=== PATIENT | female | born 1955 | race Caucasian/White ===

== ENCOUNTER 2021-04-03 10:22 | Inpatient (IN) | payer OTHER ==
[2021-04-03] MEDS ORDERED: MAGNESIUM HYDROX 2400MG/30ML ORAL SUSPENSION 30 ML CUP PO PRN (10:41)
[2021-04-03] MEDS ORDERED: ACETAMINOPHEN 325 MG TABLET (FP) PO PRN ×2 (10:41)
[2021-04-03] MEDS ORDERED: MAGNESIUM CITRATE 300 ML BOTTLE PO PRN (10:41)
[2021-04-03] MEDS ORDERED: MENTHOL/PHENOL 1 EACH UD MM PRN (10:41)
[2021-04-03] MEDS ORDERED: ONDANSETRON *ODT* 4 MG TABLET SL PRN (10:41)
[2021-04-03] MEDS ORDERED: BISMUTH SUBSALICYLATE 524 MG/30 ML PO PRN (10:41)
[2021-04-03] MEDS ORDERED: MAG HYDROX/AL HYDROX/SIMETH 30 ML UNIT-DOSE CUP PO PRN (10:41)
[2021-04-03 11:01] VITALS: BMI 29.2
[2021-04-03] MEDS: hydrOXYzine PAMOATE 25 MG CAPSULE (FP) PO SCH ×3 (13:12→21:55)
[2021-04-03] MEDS: PRENATAL VITAMINS W/ FOLIC ACID TABLET (FP) PO SCH (13:12)
[2021-04-03 15:05] LABS: HEMATOCRIT 37.6 % (32.4-45.2); HEMOGLOBIN 12.2 GM/dL (10.7-15.3); MCH 29.9 pg (25.7-33.7); MCHC 32.6 g/dl (32.0-36.0); MEAN CELL VOLUME 91.9 fl (80-96); MEAN PLT VOLUME 8.5 fl (7.5-11.1); PLATELET COUNT 280 10^3/uL (134-434); RBC 4.09 M/mm3 (3.60-5.2); RDW 17.6 % (11.6-15.6); WHITE BLOOD COUNT 8.2 K/mm3 (4.0-10.0)
[2021-04-03 15:18] LABS: CALCIUM 10.7 mg/dL (8.5-10.1)
[2021-04-03 15:19] LABS: ALBUMIN 4.2 g/dl (3.4-5.0); BLOOD UREA NITROGEN 25.1 mg/dL (7-18)
[2021-04-03 15:22] LABS: CREATININE 0.9 mg/dL (0.55-1.3)
[2021-04-03 15:23] LABS: TOT PROT 8.4 g/dl (6.4-8.2)
[2021-04-03 15:24] LABS: BILIRUBIN,TOTAL 0.4 mg/dL (0.2-1)
[2021-04-03] MEDS: THIAMINE HCL 100 MG TABLET (FP) PO SCH (21:52)
[2021-04-03] MEDS: MELATONIN 5 MG TABLETS PO SCH (21:52)
[2021-04-03] MEDS: METHOCARBAMOL 500 MG TABLET PO PRN (21:52)
[2021-04-03] MEDS: MIRTAZAPINE 15 MG TABLET (FP) PO SCH (21:53)
[2021-04-03] MEDS: OXYBUTYNIN CHLORIDE 5 MG TABLET PO SCH (23:21)
[2021-04-04] MEDS: hydrOXYzine PAMOATE 25 MG CAPSULE (FP) PO SCH ×5 (05:52→22:45)
[2021-04-04] MEDS: METHOCARBAMOL 500 MG TABLET PO PRN ×2 (05:52→13:24)
[2021-04-04] MEDS: OXYBUTYNIN CHLORIDE 5 MG TABLET PO SCH ×2 (09:17→22:45)
[2021-04-04] MEDS: LOSARTAN POTASSIUM 50 MG TABLET PO SCH (09:17)
[2021-04-04] MEDS: amLODIPine BESYLATE 5 MG TABLET (FP) PO SCH (09:17)
[2021-04-04] MEDS: ATORVASTATIN CA 20 MG TABLET (FP) PO SCH (09:18)
[2021-04-04] MEDS: PRENATAL VITAMINS W/ FOLIC ACID TABLET (FP) PO SCH (11:32)
[2021-04-04] MEDS: MELATONIN 5 MG TABLETS PO SCH (22:45)
[2021-04-04] MEDS: THIAMINE HCL 100 MG TABLET (FP) PO SCH (22:45)
[2021-04-04] MEDS: MIRTAZAPINE 15 MG TABLET (FP) PO SCH (23:00)
[2021-04-05] MEDS: hydrOXYzine PAMOATE 25 MG CAPSULE (FP) PO SCH ×5 (06:27→22:21)
[2021-04-05] MEDS: LOSARTAN POTASSIUM 50 MG TABLET PO SCH (10:00)
[2021-04-05] MEDS: amLODIPine BESYLATE 5 MG TABLET (FP) PO SCH (10:00)
[2021-04-05] MEDS: OXYBUTYNIN CHLORIDE 5 MG TABLET PO SCH ×2 (10:00→22:21)
[2021-04-05] MEDS: PRENATAL VITAMINS W/ FOLIC ACID TABLET (FP) PO SCH (10:00)
[2021-04-05] MEDS: ATORVASTATIN CA 20 MG TABLET (FP) PO SCH (10:00)
[2021-04-05] MEDS: LACTULOSE 20 GM/30 ML UDC (FOR ORAL USE ONLY) PO PRN ×2 (13:39→18:06)
[2021-04-05] MEDS: THIAMINE HCL 100 MG TABLET (FP) PO SCH (22:21)
[2021-04-05] MEDS: MIRTAZAPINE 15 MG TABLET (FP) PO SCH (22:21)
[2021-04-05] MEDS: MELATONIN 5 MG TABLETS PO SCH (22:21)
[2021-04-05] MEDS: METHOCARBAMOL 500 MG TABLET PO PRN (22:22)
[2021-04-06] MEDS: hydrOXYzine PAMOATE 25 MG CAPSULE (FP) PO SCH ×5 (06:27→23:22)
[2021-04-06] MEDS: METHOCARBAMOL 500 MG TABLET PO PRN (06:27)
[2021-04-06] MEDS: PRENATAL VITAMINS W/ FOLIC ACID TABLET (FP) PO SCH (10:40)
[2021-04-06] MEDS: amLODIPine BESYLATE 5 MG TABLET (FP) PO SCH (10:40)
[2021-04-06] MEDS: ATORVASTATIN CA 20 MG TABLET (FP) PO SCH (10:41)
[2021-04-06] MEDS: LOSARTAN POTASSIUM 50 MG TABLET PO SCH (10:41)
[2021-04-06] MEDS: OXYBUTYNIN CHLORIDE 5 MG TABLET PO SCH ×2 (10:42→23:22)
[2021-04-06] MEDS: IBUPROFEN 400 MG TABLET (FP) PO PRN (10:44)
[2021-04-06] MEDS: LACTULOSE 20 GM/30 ML UDC (FOR ORAL USE ONLY) PO SCH ×3 (14:56→23:23)
[2021-04-06] MEDS: THIAMINE HCL 100 MG TABLET (FP) PO SCH (23:23)
[2021-04-06] MEDS: MIRTAZAPINE 15 MG TABLET (FP) PO SCH (23:23)
[2021-04-06] MEDS: MELATONIN 5 MG TABLETS PO SCH (23:29)
[2021-04-07] MEDS: METHOCARBAMOL 500 MG TABLET PO PRN (06:13)
[2021-04-07] MEDS: hydrOXYzine PAMOATE 25 MG CAPSULE (FP) PO SCH ×5 (06:13→23:35)
[2021-04-07] MEDS: LACTULOSE 20 GM/30 ML UDC (FOR ORAL USE ONLY) PO SCH ×3 (06:14→23:34)
[2021-04-07] MEDS: ATORVASTATIN CA 20 MG TABLET (FP) PO SCH (10:31)
[2021-04-07] MEDS: amLODIPine BESYLATE 5 MG TABLET (FP) PO SCH (10:31)
[2021-04-07] MEDS: OXYBUTYNIN CHLORIDE 5 MG TABLET PO SCH ×2 (10:31→23:34)
[2021-04-07] MEDS: LOSARTAN POTASSIUM 50 MG TABLET PO SCH (10:31)
[2021-04-07] MEDS: PRENATAL VITAMINS W/ FOLIC ACID TABLET (FP) PO SCH (10:31)
[2021-04-07] MEDS: MELATONIN 5 MG TABLETS PO SCH (23:34)
[2021-04-07] MEDS: MIRTAZAPINE 15 MG TABLET (FP) PO SCH (23:34)
[2021-04-07] MEDS: THIAMINE HCL 100 MG TABLET (FP) PO SCH (23:35)
[2021-04-08] MEDS: LACTULOSE 20 GM/30 ML UDC (FOR ORAL USE ONLY) PO SCH ×3 (06:16→21:22)
[2021-04-08] MEDS: hydrOXYzine PAMOATE 25 MG CAPSULE (FP) PO SCH ×5 (06:16→21:23)
[2021-04-08] MEDS: OXYBUTYNIN CHLORIDE 5 MG TABLET PO SCH ×2 (10:20→21:23)
[2021-04-08] MEDS: amLODIPine BESYLATE 5 MG TABLET (FP) PO SCH (10:20)
[2021-04-08] MEDS: LOSARTAN POTASSIUM 50 MG TABLET PO SCH (10:20)
[2021-04-08] MEDS: PRENATAL VITAMINS W/ FOLIC ACID TABLET (FP) PO SCH (10:20)
[2021-04-08] MEDS: ATORVASTATIN CA 20 MG TABLET (FP) PO SCH (10:20)
[2021-04-08 21:16] VITALS: TEMP 97.1
[2021-04-08] MEDS: MELATONIN 5 MG TABLETS PO SCH (21:23)
[2021-04-08] MEDS: THIAMINE HCL 100 MG TABLET (FP) PO SCH (21:23)
[2021-04-08] MEDS: MIRTAZAPINE 15 MG TABLET (FP) PO SCH (21:24)
[2021-04-08] MEDS: IBUPROFEN 400 MG TABLET (FP) PO PRN (22:38)
[2021-04-09 02:26] VITALS: BP 132/67; PULSE 53
== END 2021-04-09 08:40 | disposition short-term general hospital (02) | DRG 897 ==
LOC: YASAS 10:22 → Y3N 11:52
PROVIDERS: ADMIT Allergy & Immunology; ATTEND Allergy & Immunology
PROC: HZ2ZZZZ Detoxification Services for Substance Abuse Treatment (ICD-10-PCS; principal; 2021-04-03)
DX: F10.20 Alcohol dependence, uncomplicated (principal); E72.20 Disorder of urea cycle metabolism, unspecified; F10.24 Alcohol dependence with alcohol-induced mood disorder; F41.1 Generalized anxiety disorder; F03.90 Unspecified dementia, unspecified severity, without behavioral disturbance, psychotic disturbance, mood disturbance, and anxiety; G47.00 Insomnia, unspecified; I10 Essential (primary) hypertension; R41.82 Altered mental status, unspecified; R41.3 Other amnesia; R79.89 Other specified abnormal findings of blood chemistry
CPT/HCPCS: 36415; 80053; 82140; 85027; 86780; 93005; 93010; C9803; U0003; U0005

== ENCOUNTER 2021-04-09 02:37 | Observation (INO) | payer OTHER ==
[2021-04-09] MEDS ORDERED: LACTULOSE 20 GM/30 ML UDC (FOR ORAL USE ONLY) PO ONE (03:19)
[2021-04-09] MEDS ORDERED: LACTULOSE 20 GM/30 ML UDC (FOR ORAL USE ONLY) ONE (05:12)
[2021-04-09 05:21] LABS: BASO % 0.6 % (0-2.0); EOS % 1.6 % (0-4.5); HEMATOCRIT 33.4 % (32.4-45.2); HEMOGLOBIN 10.8 GM/dL (10.7-15.3); MCH 29.7 pg (25.7-33.7); MCHC 32.4 g/dl (32.0-36.0); MEAN CELL VOLUME 91.6 fl (80-96); MEAN PLT VOLUME 8.1 fl (7.5-11.1); MONO % 12.9 % (3.8-10.2); NEUT % 58.9 % (42.8-82.8); PLATELET COUNT 298 10^3/uL (134-434); RBC 3.65 M/mm3 (3.60-5.2)
[2021-04-09] MEDS: LACTATED RINGERS SOLUTION 1,000 ML/1,000 ML INFUS.BAG IV SCH (05:21)
[2021-04-09 05:43] LABS: CALCIUM 10.2 mg/dL (8.5-10.1); MAGNESIUM 2.2 mg/dL (1.8-2.4)
[2021-04-09 05:44] LABS: ALBUMIN 3.8 g/dl (3.4-5.0); BLOOD UREA NITROGEN 23.1 mg/dL (7-18)
[2021-04-09 05:47] LABS: CREATININE 0.8 mg/dL (0.55-1.3); PHOSPHOROUS 3.1 mg/dL (2.5-4.9)
[2021-04-09 05:49] LABS: BILIRUBIN,TOTAL 0.3 mg/dL (0.2-1); TOT PROT 7.3 g/dl (6.4-8.2)
[2021-04-09 06:13] LABS: INR 1.09 (0.83-1.09); PROTHROMBIN TIME (PATIENT) 12.5 SEC (9.7-13.0)
[2021-04-09 06:15] LABS: ACTIVATED PTT 28.8 SECONDS (25.2-36.5)
[2021-04-09] MEDS ORDERED: LOSARTAN POTASSIUM 50 MG TABLET ONE ×2 (09:19)
[2021-04-09] MEDS ORDERED: ENOXAPARIN NA (PORCINE) 40 MG/0.4 ML DISP.SYRIN SQ ONE (09:19)
[2021-04-09] MEDS: LOSARTAN POTASSIUM 50 MG TABLET PO SCH (09:43)
[2021-04-09] MEDS: ENOXAPARIN NA (PORCINE) 40 MG/0.4 ML DISP.SYRIN SQ SCH (09:43)
[2021-04-09 11:31] VITALS: BMI 27.0
[2021-04-09] MEDS: THIAMINE HCL 100 MG TABLET (FP) PO SCH (13:43)
[2021-04-09] MEDS: FOLIC ACID 1 MG TABLET (FP) PO SCH (13:43)
[2021-04-09] MEDS ORDERED: OLANZapine 10 MG TABLET PO ONE (14:46)
[2021-04-09] MEDS ORDERED: HALOPERIDOL LACTATE 5 MG/ML IM PRN (14:48)
[2021-04-09] MEDS: MIRTAZAPINE 15 MG TABLET (FP) PO SCH (22:44)
[2021-04-09] MEDS: LACTULOSE 20 GM/30 ML UDC (FOR ORAL USE ONLY) PO SCH (22:44)
[2021-04-10 04:15] LABS: COCAINE, UR NEGATIVE (NEGATIVE); METHADONE, UR NEGATIVE (NEGATIVE); PHENCYCLIDINE,URINE NEGATIVE (NEGATIVE); URINE BENZODIAZEPINES NEGATIVE (NEGATIVE)
[2021-04-10 04:16] LABS: OPIATES, URI NEGATIVE (NEGATIVE); URINE BARBITURATES NEGATIVE (NEGATIVE)
[2021-04-10 04:37] LABS: URINE AMPHETAMINES NEGATIVE (NEGATIVE)
[2021-04-10] MEDS: LACTATED RINGERS SOLUTION 1,000 ML/1,000 ML INFUS.BAG IV SCH ×2 (05:00→17:09)
[2021-04-10] MEDS: HYDROCHLOROTHIAZIDE 12.5 MG CAPSULE (FP) PO SCH (06:26)
[2021-04-10 08:57] LABS: BASO % 0.6 % (0-2.0); EOS % 1.2 % (0-4.5); HEMATOCRIT 36.4 % (32.4-45.2); HEMOGLOBIN 11.4 GM/dL (10.7-15.3); LYMPH % 21.1 % (8-40); MCH 29.4 pg (25.7-33.7); MCHC 31.4 g/dl (32.0-36.0); MEAN CELL VOLUME 93.6 fl (80-96); MEAN PLT VOLUME 8.4 fl (7.5-11.1); MONO % 12.8 % (3.8-10.2); NEUT % 64.3 % (42.8-82.8); PLATELET COUNT 322 10^3/uL (134-434); RBC 3.88 M/mm3 (3.60-5.2); RDW 16.3 % (11.6-15.6); WHITE BLOOD COUNT 6.2 K/mm3 (4.0-10.0)
[2021-04-10] MEDS: LOSARTAN POTASSIUM 50 MG TABLET PO SCH (09:00)
[2021-04-10] MEDS: ENOXAPARIN NA (PORCINE) 40 MG/0.4 ML DISP.SYRIN SQ SCH (09:00)
[2021-04-10] MEDS: LACTULOSE 20 GM/30 ML UDC (FOR ORAL USE ONLY) PO SCH ×3 (09:00→21:57)
[2021-04-10] MEDS: THIAMINE HCL 100 MG TABLET (FP) PO SCH (09:01)
[2021-04-10] MEDS: FOLIC ACID 1 MG TABLET (FP) PO SCH (09:01)
[2021-04-10 09:41] LABS: BILIRUBIN,TOTAL 0.6 mg/dL (0.2-1)
[2021-04-10 09:42] LABS: ALBUMIN 3.9 g/dl (3.4-5.0); CALCIUM 10.1 mg/dL (8.5-10.1)
[2021-04-10 09:43] LABS: MAGNESIUM 2.2 mg/dL (1.8-2.4); TOT PROT 7.6 g/dl (6.4-8.2)
[2021-04-10 09:45] LABS: BLOOD UREA NITROGEN 15.3 mg/dL (7-18); PHOSPHOROUS 2.4 mg/dL (2.5-4.9)
[2021-04-10 09:51] LABS: CREATININE 0.7 mg/dL (0.55-1.3)
[2021-04-10] MEDS: MIRTAZAPINE 15 MG TABLET (FP) PO SCH (21:56)
[2021-04-10] MEDS: MELATONIN 1 MG TABLET PO SCH (21:56)
[2021-04-11] MEDS: LACTATED RINGERS SOLUTION 1,000 ML/1,000 ML INFUS.BAG IV SCH ×2 (05:45→13:40)
[2021-04-11] MEDS: HYDROCHLOROTHIAZIDE 12.5 MG CAPSULE (FP) PO SCH (06:07)
[2021-04-11 07:59] LABS: BASO % 0.8 % (0-2.0); EOS % 1.2 % (0-4.5); HEMOGLOBIN 11.2 GM/dL (10.7-15.3); LYMPH % 23.2 % (8-40); MCH 30.1 pg (25.7-33.7); MCHC 30.2 g/dl (32.0-36.0); MEAN CELL VOLUME 99.4 fl (80-96); MEAN PLT VOLUME 8.8 fl (7.5-11.1); MONO % 13.1 % (3.8-10.2); NEUT % 61.7 % (42.8-82.8); PLATELET COUNT 261 10^3/uL (134-434); RBC 3.72 M/mm3 (3.60-5.2); WHITE BLOOD COUNT 5.6 K/mm3 (4.0-10.0)
[2021-04-11 08:26] LABS: CALCIUM 10.4 mg/dL (8.5-10.1)
[2021-04-11 08:27] LABS: ALBUMIN 3.8 g/dl (3.4-5.0); MAGNESIUM 2.1 mg/dL (1.8-2.4)
[2021-04-11 08:30] LABS: CREATININE 0.7 mg/dL (0.55-1.3)
[2021-04-11 08:31] LABS: BILIRUBIN,TOTAL 0.3 mg/dL (0.2-1); TOT PROT 7.5 g/dl (6.4-8.2)
[2021-04-11] MEDS: LACTULOSE 20 GM/30 ML UDC (FOR ORAL USE ONLY) PO SCH ×4 (09:36→21:01)
[2021-04-11] MEDS: ENOXAPARIN NA (PORCINE) 40 MG/0.4 ML DISP.SYRIN SQ SCH (09:36)
[2021-04-11] MEDS: LOSARTAN POTASSIUM 50 MG TABLET PO SCH (09:36)
[2021-04-11] MEDS: FOLIC ACID 1 MG TABLET (FP) PO SCH (09:36)
[2021-04-11] MEDS: THIAMINE HCL 100 MG TABLET (FP) PO SCH (09:37)
[2021-04-11] MEDS: ACETAMINOPHEN 325 MG TABLET (FP) PO PRN (16:03)
[2021-04-11] MEDS: MELATONIN 1 MG TABLET PO SCH (21:00)
[2021-04-11] MEDS: MIRTAZAPINE 15 MG TABLET (FP) PO SCH (21:01)
[2021-04-12] MEDS: HYDROCHLOROTHIAZIDE 12.5 MG CAPSULE (FP) PO SCH (06:23)
[2021-04-12] MEDS: LACTATED RINGERS SOLUTION 1,000 ML/1,000 ML INFUS.BAG IV SCH (06:58)
[2021-04-12 08:54] LABS: EOS % 2.5 % (0-4.5); HEMATOCRIT 35.4 % (32.4-45.2); HEMOGLOBIN 11.5 GM/dL (10.7-15.3); LYMPH % 34.3 % (8-40); MCH 30.7 pg (25.7-33.7); MCHC 32.6 g/dl (32.0-36.0); MEAN CELL VOLUME 94.4 fl (80-96); MEAN PLT VOLUME 8.4 fl (7.5-11.1); MONO % 14.8 % (3.8-10.2); NEUT % 47.4 % (42.8-82.8); PLATELET COUNT 304 10^3/uL (134-434); RBC 3.75 M/mm3 (3.60-5.2); RDW 16.4 % (11.6-15.6); WHITE BLOOD COUNT 5.8 K/mm3 (4.0-10.0)
[2021-04-12] MEDS: ENOXAPARIN NA (PORCINE) 40 MG/0.4 ML DISP.SYRIN SQ SCH (10:31)
[2021-04-12] MEDS: LACTULOSE 20 GM/30 ML UDC (FOR ORAL USE ONLY) PO SCH ×4 (10:31→22:01)
[2021-04-12] MEDS: LOSARTAN POTASSIUM 50 MG TABLET PO SCH (10:32)
[2021-04-12] MEDS: THIAMINE HCL 100 MG TABLET (FP) PO SCH (10:32)
[2021-04-12] MEDS: FOLIC ACID 1 MG TABLET (FP) PO SCH (10:32)
[2021-04-12] MEDS: ACETAMINOPHEN 325 MG TABLET (FP) PO PRN (10:36)
[2021-04-12 10:49] LABS: ALBUMIN 3.8 g/dl (3.4-5.0); BILIRUBIN,TOTAL 0.3 mg/dL (0.2-1); BLOOD UREA NITROGEN 13.6 mg/dL (7-18); CALCIUM 10.7 mg/dL (8.5-10.1); CREATININE 0.8 mg/dL (0.55-1.3); MAGNESIUM 2.3 mg/dL (1.8-2.4); TOT PROT 7.5 g/dl (6.4-8.2)
[2021-04-12] MEDS ORDERED: LACTATED RINGERS SOLUTION 1,000 ML/1,000 ML INFUS.BAG IV SCH (19:00)
[2021-04-12] MEDS ORDERED: SODIUM BICARBONATE 650 MG TABLET PO SCH (22:00)
[2021-04-12] MEDS: MELATONIN 1 MG TABLET PO SCH (22:01)
[2021-04-12] MEDS: MIRTAZAPINE 15 MG TABLET (FP) PO SCH (22:02)
[2021-04-13] MEDS: LORazepam 0.5 MG TABLET PO PRN ×2 (05:40→14:28)
[2021-04-13] MEDS: ACETAMINOPHEN 325 MG TABLET (FP) PO PRN (05:47)
[2021-04-13 09:01] LABS: BASO % 0.8 % (0-2.0); EOS % 1.2 % (0-4.5); HEMATOCRIT 38.7 % (32.4-45.2); HEMOGLOBIN 12.2 GM/dL (10.7-15.3); LYMPH % 23.4 % (8-40); MCH 29.7 pg (25.7-33.7); MCHC 31.5 g/dl (32.0-36.0); MEAN CELL VOLUME 94.2 fl (80-96); MONO % 10.6 % (3.8-10.2); PLATELET COUNT 321 10^3/uL (134-434); RDW 16.5 % (11.6-15.6); WHITE BLOOD COUNT 6.9 K/mm3 (4.0-10.0)
[2021-04-13 09:25] LABS: ALBUMIN 4.5 g/dl (3.4-5.0); BLOOD UREA NITROGEN 15.9 mg/dL (7-18); CALCIUM 10.8 mg/dL (8.5-10.1); MAGNESIUM 2.1 mg/dL (1.8-2.4)
[2021-04-13 09:27] LABS: CREATININE 0.8 mg/dL (0.55-1.3)
[2021-04-13 09:30] LABS: BILIRUBIN,TOTAL 0.3 mg/dL (0.2-1); TOT PROT 8.6 g/dl (6.4-8.2)
[2021-04-13] MEDS: LOSARTAN POTASSIUM 50 MG TABLET PO SCH (10:07)
[2021-04-13] MEDS: THIAMINE HCL 100 MG TABLET (FP) PO SCH (10:07)
[2021-04-13] MEDS: ENOXAPARIN NA (PORCINE) 40 MG/0.4 ML DISP.SYRIN SQ SCH (10:07)
[2021-04-13] MEDS: LACTULOSE 20 GM/30 ML UDC (FOR ORAL USE ONLY) PO SCH ×4 (10:07→22:03)
[2021-04-13] MEDS: FOLIC ACID 1 MG TABLET (FP) PO SCH (10:08)
[2021-04-13] MEDS: MIRTAZAPINE 15 MG TABLET (FP) PO SCH (22:03)
[2021-04-13] MEDS: MELATONIN 1 MG TABLET PO SCH (22:03)
[2021-04-14 08:12] LABS: BASO % 0.6 % (0-2.0); EOS % 2.7 % (0-4.5); HEMOGLOBIN 11.4 GM/dL (10.7-15.3); LYMPH % 26.2 % (8-40); MCH 29.8 pg (25.7-33.7); MCHC 31.6 g/dl (32.0-36.0); MEAN CELL VOLUME 94.4 fl (80-96); MEAN PLT VOLUME 8.9 fl (7.5-11.1); MONO % 10.5 % (3.8-10.2); PLATELET COUNT 351 10^3/uL (134-434); RBC 3.81 M/mm3 (3.60-5.2); RDW 16.3 % (11.6-15.6); WHITE BLOOD COUNT 6.3 K/mm3 (4.0-10.0)
[2021-04-14 08:27] LABS: ALBUMIN 3.9 g/dl (3.4-5.0); BLOOD UREA NITROGEN 19.5 mg/dL (7-18); CALCIUM 11.2 mg/dL (8.5-10.1); MAGNESIUM 2.3 mg/dL (1.8-2.4)
[2021-04-14 08:31] LABS: BILIRUBIN,TOTAL 0.2 mg/dL (0.2-1); CREATININE 0.8 mg/dL (0.55-1.3)
[2021-04-14 08:33] LABS: TOT PROT 7.5 g/dl (6.4-8.2)
[2021-04-14] MEDS: ENOXAPARIN NA (PORCINE) 40 MG/0.4 ML DISP.SYRIN SQ SCH (10:01)
[2021-04-14] MEDS: LACTULOSE 20 GM/30 ML UDC (FOR ORAL USE ONLY) PO SCH ×3 (10:01→21:27)
[2021-04-14] MEDS: LOSARTAN POTASSIUM 50 MG TABLET PO SCH (10:01)
[2021-04-14] MEDS: THIAMINE HCL 100 MG TABLET (FP) PO SCH (10:02)
[2021-04-14] MEDS: FOLIC ACID 1 MG TABLET (FP) PO SCH (10:02)
[2021-04-14] MEDS: MELATONIN 1 MG TABLET PO SCH (21:25)
[2021-04-14] MEDS: MIRTAZAPINE 15 MG TABLET (FP) PO SCH (21:25)
[2021-04-14] MEDS: LORazepam 0.5 MG TABLET PO PRN (21:26)
[2021-04-14] MEDS: ACETAMINOPHEN 325 MG TABLET (FP) PO PRN (21:26)
[2021-04-15] MEDS: LACTULOSE 20 GM/30 ML UDC (FOR ORAL USE ONLY) PO SCH (05:16)
[2021-04-15] MEDS: ENOXAPARIN NA (PORCINE) 40 MG/0.4 ML DISP.SYRIN SQ SCH (09:22)
[2021-04-15] MEDS: ACETAMINOPHEN 325 MG TABLET (FP) PO PRN (09:23)
[2021-04-15] MEDS: FOLIC ACID 1 MG TABLET (FP) PO SCH (09:23)
[2021-04-15] MEDS: LOSARTAN POTASSIUM 50 MG TABLET PO SCH (09:23)
[2021-04-15] MEDS: THIAMINE HCL 100 MG TABLET (FP) PO SCH (09:23)
[2021-04-15 09:38] VITALS: BP 118/79; PULSE 91; TEMP 98.2
== END 2021-04-15 12:56 | disposition home health service (06) ==
LOC: JER 02:37 → J7W 06:29 → INTOOBSV 06:29 → UNDOADMOB 06:29 → JERBED 06:29 → J7W 10:31
PROVIDERS: ADMIT Internal Medicine; ATTEND Nurse Practitioner Family
PROC: 3E023GC Introduction of Other Therapeutic Substance into Muscle, Percutaneous Approach (ICD-10-PCS; principal; 2021-04-09)
PROC: 3E033GC Introduction of Other Therapeutic Substance into Peripheral Vein, Percutaneous Approach (ICD-10-PCS; 2021-04-09)
PROC: 3E0337Z Introduction of Electrolytic and Water Balance Substance into Peripheral Vein, Percutaneous Approach (ICD-10-PCS; 2021-04-09)
DX: F10.99 Alcohol use, unspecified with unspecified alcohol-induced disorder (principal); E83.52 Hypercalcemia; E87.2 Acidosis; G93.41 Metabolic encephalopathy; E72.20 Disorder of urea cycle metabolism, unspecified; F41.8 Other specified anxiety disorders; R41.82 Altered mental status, unspecified; I10 Essential (primary) hypertension; K74.60 Unspecified cirrhosis of liver; Z29.9 Encounter for prophylactic measures, unspecified; K72.90 Hepatic failure, unspecified without coma; F17.210 Nicotine dependence, cigarettes, uncomplicated
CPT/HCPCS: 36415; 70450-TC; 71046-TC-FY; 76700-TC; 80053; 80307; 82140; 82310; 82436; 82607; 83735; 83935; 83970; 84100; 84133; 84300; 84443; 85025; 85610; 85730; 86780; 93005; 93010; 96360; 96372; 97116-GP; 97161-GP; 99285-25; C9803; G0378; U0003; U0005